=== PATIENT | female | born 1945 | race American Indian/Alaskan Native ===

== ENCOUNTER 2017-10-14 06:23 | Emergency (ER) | payer OTHER ==
[~2017-10-14] VITALS: Ht 154.9 cm; Wt 77.1 kg
[~2017-10-14 06:23] MED LIST: ALBU90OI61 INH; ASPI81CH PO; ATOR40TA PO; Alprazolam0.25 MG PO; CEPH500 PO; CLOP75 PO; Daily Multiple1 EACH PO; Duoneb 2.5-0.5 M3 ML IH; ERGO50000 PO; FERR325 PO; HYDACE10B PO; Hydrocodone-Ap1 EA20 PO; LAVAP17G PO; LIDO5TP TOP; LISI5 PO; METH10 PO; METO25 PO; Omeprazole20 M1 PO; POLYETHYLENE G255 GM PO; PROM25 PO; SUCR1 PO; TRAZ150T57 PO; Voltaren100 GM TOP; Zofran Odt4 MG SL
[2017-10-14] MEDS ORDERED: OXYC1TAB11 PO (07:55)
[2017-10-14] MEDS ORDERED: OMEPRAZOLE20 MG PO (07:58)
[2017-10-14 08:31] LABS: BASOPHILS ABSOLUTE AUTO 0.03 K/mm3 (0.00-0.23); BASOPHILS PERCENT AUTO 1 % (0-2); EOSINOPHILS ABSOLUTE AUTO 0.21 K/mm3 (0.00-0.68); EOSINOPHILS PERCENT AUTO 3 % (0-6); Hematocrit 41.1 % (33.0-51.0); Hemoglobin 12.8 g/dL (11.5-16.0); IMMATURE GRAN ABSOLUTE AUTO 0.03 K/mm3 (0.00-0.10); IMMATURE GRAN PERCENT AUTO 1 % (0-1); LYMPHOCYTES ABSOLUTE AUTO 1.49 K/mm3 (0.84-5.20); LYMPHOCYTES PERCENT AUTO 24 % (21-46); MONOCYTES ABSOLUTE AUTO 0.47 K/mm3 (0.16-1.47); MONOCYTES PERCENT AUTO 8 % (4-13); Mean Corpuscular HGB Conc 31.1 g/dL (31.5-36.5); Mean Corpuscular Volume 97 fL (80-100); Mean Platelet Volume 10.1 fL (9.1-12.4); NEUTROPHILS ABSOLUTE AUTO 4.01 K/mm3 (1.96-9.15); NEUTROPHILS PERCENT AUTO 64 % (41-73); Platelet Count 267 K/mm3 (150-400); RDW Standard Deviation 45.9 fL (35.1-46.3); Red Blood Cell Count 4.26 M/mm3 (3.80-5.20); White Blood Cell Count 6.24 K/mm3 (4.00-11.30)
[2017-10-14 08:42] LABS: Alanine Aminotransfer (ALT/SGP 23 U/L (12-78); Albumin, Blood 2.9 g/dL (3.4-5.0); Alk Phos 49 U/L (50-136); Anion Gap 6 mmol/L (6-16); Aspartate Aminotrans (AST/SGOT 20 U/L (12-37); Bilirubin, Total 0.2 mg/dL (0.1-1.0); Blood Urea Nitrogen 11 mg/dL (8-24); Bun/Creatinine Ratio 17.4 (12.0-20.0); CO2, Blood 26 mmol/L (21-32); Calcium, Blood 7.4 mg/dL (8.5-10.1); Chloride, Blood 109 mmol/L (98-108); Creatinine, Blood 0.63 mg/dL (0.40-1.00); Globulin, Blood 2.8 g/dL (2.2-4.0); Glomerular Filtration Rate >60 (60-); Glucose, Blood 120 mg/dL (70-99); Potassium, Blood 3.9 mmol/L (3.5-5.5); Sodium, Blood 141 mmol/L (136-145); Total Protein, Blood 5.7 g/dL (6.4-8.2); Troponin I 0.016 ng/mL (0.000-0.040)
[2017-10-14] MEDS ORDERED: Motion Sickness25 M2 PO (11:07)
== END 2017-10-14 12:05 | disposition home or self-care (01) ==
LOC: ER 06:23
PROVIDERS: Physician Assistant
DX: R42 Dizziness and giddiness (principal); S01.81XA Laceration without foreign body of other part of head, initial encounter; I10 Essential (primary) hypertension; E78.5 Hyperlipidemia, unspecified; K21.9 Gastro-esophageal reflux disease without esophagitis; J44.9 Chronic obstructive pulmonary disease, unspecified; Z88.0 Allergy status to penicillin; Z88.2 Allergy status to sulfonamides; Z79.899 Other long term (current) drug therapy; Z79.82 Long term (current) use of aspirin; Z87.891 Personal history of nicotine dependence; W22.8XXA Striking against or struck by other objects, initial encounter
CPT/HCPCS: 12052; 36415; 70450; 80053; 83880; 84484; 85025; 90471; 90714; 93005; 93010; 96374; 99284-25; J2405

== ENCOUNTER 2017-11-12 14:48 | Day surgery (SDC) | payer OTHER ==
[~2017-11-12 14:48] MED LIST changes: +Motion Sickness25 M2 PO; +OMEPRAZOLE20 MG PO; +OXYC1TAB11 PO
== END 2017-11-12 22:46 | disposition home or self-care (01) ==
LOC: RAD 14:48
DX: M75.121 Complete rotator cuff tear or rupture of right shoulder, not specified as traumatic (principal)
CPT/HCPCS: 20610; 23350; 73201; 77002; Q9967

== ENCOUNTER 2018-06-08 11:20 | Emergency (ER) | payer OTHER ==
[~2018-06-08] VITALS: Ht 154.9 cm; Wt 72.6 kg
[2018-06-08 11:56] LABS: BASOPHILS ABSOLUTE AUTO 0.03 K/mm3 (0.00-0.23); BASOPHILS PERCENT AUTO 0 % (0-2); EOSINOPHILS ABSOLUTE AUTO 0.11 K/mm3 (0.00-0.68); EOSINOPHILS PERCENT AUTO 1 % (0-6); Hematocrit 40.3 % (33.0-51.0); Hemoglobin 12.4 g/dL (11.5-16.0); IMMATURE GRAN ABSOLUTE AUTO 0.04 K/mm3 (0.00-0.10); IMMATURE GRAN PERCENT AUTO 0 % (0-1); LYMPHOCYTES ABSOLUTE AUTO 1.68 K/mm3 (0.84-5.20); LYMPHOCYTES PERCENT AUTO 17 % (21-46); MONOCYTES ABSOLUTE AUTO 0.68 K/mm3 (0.16-1.47); MONOCYTES PERCENT AUTO 7 % (4-13); Mean Corpuscular HGB Conc 30.8 g/dL (31.5-36.5); Mean Corpuscular Volume 94 fL (80-100); Mean Platelet Volume 9.9 fL (9.1-12.4); NEUTROPHILS ABSOLUTE AUTO 7.29 K/mm3 (1.96-9.15); NEUTROPHILS PERCENT AUTO 74 % (41-73); Platelet Count 323 K/mm3 (150-400); RDW Coefficient Variation 13.8 % (11.7-14.2); RDW Standard Deviation 47.4 fL (35.1-46.3); Red Blood Cell Count 4.28 M/mm3 (3.80-5.20); White Blood Cell Count 9.83 K/mm3 (4.00-11.30)
[2018-06-08 12:18] LABS: Alanine Aminotransfer (ALT/SGP 22 U/L (12-78); Albumin, Blood 3.3 g/dL (3.4-5.0); Albumin/Globulin Ratio 1.3 (0.8-1.8); Alk Phos 49 U/L (50-136); Anion Gap 5 mmol/L (6-16); Aspartate Aminotrans (AST/SGOT 9 U/L (12-37); Bilirubin, Total 0.3 mg/dL (0.1-1.0); Blood Urea Nitrogen 14 mg/dL (8-24); Bun/Creatinine Ratio 17.9 (12.0-20.0); CO2, Blood 28 mmol/L (21-32); Calcium, Blood 8.6 mg/dL (8.5-10.1); Chloride, Blood 108 mmol/L (98-108); Creatinine, Blood 0.78 mg/dL (0.40-1.00); Globulin, Blood 2.5 g/dL (2.2-4.0); Glomerular Filtration Rate >60 (60-); Glucose, Blood 116 mg/dL (70-99); Potassium, Blood 4.3 mmol/L (3.5-5.5); Sodium, Blood 141 mmol/L (136-145); Total Protein, Blood 5.8 g/dL (6.4-8.2)
[2018-06-08] MEDS ORDERED: Moviprep Powde1 EACH PO (14:13)
[2018-06-08] MEDS ORDERED: ONDA4ODT MM (14:16)
== END 2018-06-08 14:26 | disposition home or self-care (01) ==
LOC: ER 11:20
PROVIDERS: Physician Assistant
DX: K59.00 Constipation, unspecified (principal); Z88.0 Allergy status to penicillin; Z88.2 Allergy status to sulfonamides; Z79.899 Other long term (current) drug therapy; I10 Essential (primary) hypertension; J44.9 Chronic obstructive pulmonary disease, unspecified; Z87.891 Personal history of nicotine dependence
CPT/HCPCS: 36415; 74177; 80053; 83690; 85025; 96374-59; 99284-25; J2405; Q9967

== ENCOUNTER 2018-08-21 16:31 | Emergency (ER) | payer OTHER ==
[~2018-08-21] VITALS: Ht 154.9 cm; Wt 72.6 kg
[~2018-08-21 16:31] MED LIST changes: +Moviprep Powde1 EACH PO; +ONDA4ODT MM
[2018-08-21 17:36] LABS: BASOPHILS ABSOLUTE AUTO 0.05 K/mm3 (0.00-0.23); BASOPHILS PERCENT AUTO 1 % (0-2); EOSINOPHILS ABSOLUTE AUTO 0.27 K/mm3 (0.00-0.68); EOSINOPHILS PERCENT AUTO 3 % (0-6); Hematocrit 36.2 % (33.0-51.0); Hemoglobin 11.6 g/dL (11.5-16.0); IMMATURE GRAN ABSOLUTE AUTO 0.07 K/mm3 (0.00-0.10); IMMATURE GRAN PERCENT AUTO 1 % (0-1); LYMPHOCYTES ABSOLUTE AUTO 3.26 K/mm3 (0.84-5.20); LYMPHOCYTES PERCENT AUTO 38 % (21-46); MONOCYTES PERCENT AUTO 7 % (4-13); Mean Corpuscular HGB 29.7 pg (26.0-34.0); Mean Corpuscular Volume 93 fL (80-100); Mean Platelet Volume 10.1 fL (9.1-12.4); NEUTROPHILS ABSOLUTE AUTO 4.23 K/mm3 (1.96-9.15); NEUTROPHILS PERCENT AUTO 50 % (41-73); Platelet Count 331 K/mm3 (150-400); RDW Standard Deviation 47.7 fL (35.1-46.3); White Blood Cell Count 8.48 K/mm3 (4.00-11.30)
[2018-08-21 17:58] LABS: Alanine Aminotransfer (ALT/SGP 18 U/L (12-78); Albumin, Blood 3.4 g/dL (3.4-5.0); Albumin/Globulin Ratio 1.4 (0.8-1.8); Alk Phos 43 U/L (50-136); Anion Gap 6 mmol/L (6-16); Aspartate Aminotrans (AST/SGOT 16 U/L (12-37); Bilirubin, Total 0.3 mg/dL (0.1-1.0); Blood Urea Nitrogen 26 mg/dL (8-24); Bun/Creatinine Ratio 29.4 (12.0-20.0); CO2, Blood 30 mmol/L (21-32); Calcium, Blood 8.7 mg/dL (8.5-10.1); Chloride, Blood 95 mmol/L (98-108); Creatinine, Blood 0.88 mg/dL (0.40-1.00); Globulin, Blood 2.5 g/dL (2.2-4.0); Glomerular Filtration Rate >60 (60-); Glucose, Blood 95 mg/dL (70-99); Potassium, Blood 4.3 mmol/L (3.5-5.5); Sodium, Blood 131 mmol/L (136-145); Total Protein, Blood 5.9 g/dL (6.4-8.2)
[2018-08-21 18:02] LABS: Troponin I <0.015 ng/mL (0.000-0.040)
[2018-08-21] MEDS ORDERED: ASPI325 PO (19:36)
== END 2018-08-21 20:24 | disposition left against medical advice (07) ==
LOC: ER 16:31
PROVIDERS: Physician Assistant
DX: R53.1 Weakness (principal); R42 Dizziness and giddiness; R00.1 Bradycardia, unspecified; R07.89 Other chest pain; R06.02 Shortness of breath; Z53.21 Procedure and treatment not carried out due to patient leaving prior to being seen by health care provider
CPT/HCPCS: 36415; 70450; 71046; 80053; 83880; 84443; 84484; 85025; 93005; 93010; 99284-25

== ENCOUNTER 2018-12-10 12:25 | Emergency (ER) | payer OTHER ==
[~2018-12-10] VITALS: Ht 154.9 cm; Wt 69.8 kg
[~2018-12-10 12:25] MED LIST changes: +ASPI325 PO
[2018-12-10 13:15] LABS: BASOPHILS ABSOLUTE AUTO 0.04 K/mm3 (0.00-0.23); BASOPHILS PERCENT AUTO 1 % (0-2); Hemoglobin 10.5 g/dL (11.5-16.0); RDW Coefficient Variation 14.5 % (11.7-14.2)
[2018-12-10 13:22] LABS: EOSINOPHILS ABSOLUTE AUTO 0.44 K/mm3 (0.00-0.68); EOSINOPHILS PERCENT AUTO 6 % (0-6); Hematocrit 34.9 % (33.0-51.0); IMMATURE GRAN ABSOLUTE AUTO 0.04 K/mm3 (0.00-0.10); IMMATURE GRAN PERCENT AUTO 1 % (0-1); LYMPHOCYTES ABSOLUTE AUTO 1.67 K/mm3 (0.84-5.20); LYMPHOCYTES PERCENT AUTO 21 % (21-46); MONOCYTES ABSOLUTE AUTO 0.63 K/mm3 (0.16-1.47); MONOCYTES PERCENT AUTO 8 % (4-13); Mean Corpuscular HGB 26.3 pg (26.0-34.0); Mean Corpuscular HGB Conc 30.1 g/dL (31.5-36.5); Mean Corpuscular Volume 88 fL (80-100); NEUTROPHILS ABSOLUTE AUTO 5.13 K/mm3 (1.96-9.15); NEUTROPHILS PERCENT AUTO 65 % (41-73); RDW Standard Deviation 46.5 fL (35.1-46.3); Red Blood Cell Count 3.99 M/mm3 (3.80-5.20); White Blood Cell Count 7.95 K/mm3 (4.00-11.30)
[2018-12-10 13:26] LABS: Mean Platelet Volume 9.9 fL (9.1-12.4); Platelet Count 401 K/mm3 (150-400)
[2018-12-10 13:38] LABS: Alanine Aminotransfer (ALT/SGP 13 U/L (12-78); Albumin, Blood 3.4 g/dL (3.4-5.0); Albumin/Globulin Ratio 1.2 (0.8-1.8); Alk Phos 61 U/L (50-136); Anion Gap 5 mmol/L (6-16); Aspartate Aminotrans (AST/SGOT 18 U/L (12-37); Bilirubin, Total 0.3 mg/dL (0.1-1.0); Blood Urea Nitrogen 17 mg/dL (8-24); Bun/Creatinine Ratio 16.8 (12.0-20.0); CO2, Blood 28 mmol/L (21-32); Calcium, Blood 8.3 mg/dL (8.5-10.1); Chloride, Blood 99 mmol/L (98-108); Creatinine, Blood 1.01 mg/dL (0.40-1.00); Globulin, Blood 2.8 g/dL (2.2-4.0); Glomerular Filtration Rate 57 (60-); Glucose, Blood 104 mg/dL (70-99); Potassium, Blood 4.6 mmol/L (3.5-5.5); Sodium, Blood 132 mmol/L (136-145); Total Protein, Blood 6.2 g/dL (6.4-8.2); Troponin I <0.015 ng/mL (0.000-0.040)
[2018-12-10] MEDS ORDERED: Lasix40 MG PO (14:05)
== END 2018-12-10 14:35 | disposition home or self-care (01) ==
LOC: ER 12:25
PROVIDERS: Physician Assistant
DX: R00.2 Palpitations (principal); I49.3 Ventricular premature depolarization; R05 Cough; K21.9 Gastro-esophageal reflux disease without esophagitis; J44.9 Chronic obstructive pulmonary disease, unspecified; R60.0 Localized edema; I25.2 Old myocardial infarction; I10 Essential (primary) hypertension; Z85.41 Personal history of malignant neoplasm of cervix uteri; Z85.038 Personal history of other malignant neoplasm of large intestine; Z87.891 Personal history of nicotine dependence; Z86.73 Personal history of transient ischemic attack (TIA), and cerebral infarction without residual deficits; Z88.0 Allergy status to penicillin; Z88.2 Allergy status to sulfonamides; Z79.899 Other long term (current) drug therapy; Z79.82 Long term (current) use of aspirin
CPT/HCPCS: 36415; 71046; 80053; 83735; 83880; 84484; 85025; 93005; 93010; 99285-25

== ENCOUNTER 2023-12-26 08:11 | Day surgery (SDC) | payer OTHER ==
[~2023-12-26] VITALS: Ht 124.5 cm; Wt 72.7 kg
[~2023-12-26 08:11] MED LIST changes: +Lasix40 MG PO
[2023-12-26] MEDS ORDERED: Lactated Ringer's 1,000 ML IV ONE ×2 (08:14→09:39)
[2023-12-26] MEDS ORDERED: IPRAT-ALBUT 0.5-3 ML (08:55)
[2023-12-26] MEDS ORDERED: BUDESONIDE0.5 MG/2 M (08:55)
[2023-12-26] MEDS ORDERED: GABA400 (08:56)
[2023-12-26] MEDS ORDERED: POTA10T (08:56)
[2023-12-26] MEDS ORDERED: METF500 (08:56)
[2023-12-26] MEDS ORDERED: Crestor40 MG (08:56)
[2023-12-26] MEDS ORDERED: PANT20 (08:57)
[2023-12-26] MEDS ORDERED: propofoL 50 ML IV ONE (10:06)
[2023-12-26] MEDS ORDERED: Ipratropium/Albuterol SulF 2.5-0.5MG/3 ML Amp ONE (10:35)
--- NOTE | 2023-12-26 10:45 | NUR ---
12/26/23 1045 Dawood,Kellcie WHEEZES NOTED BILATERALLY IN UPPER LOBES, INSPIRATORY AND EXPIRATORY, SP02 AT 94%. ANESTHESIA ORDERED DUONEB FOR PT IN SDU. DUONED GIVEN.
[2023-12-26 11:45] VITALS: BP 201/104
== END 2023-12-26 11:12 | disposition home or self-care (01) ==
LOC: ORSCSDS 08:11
PROVIDERS: Internal Medicine Gastroenterology
PROC: 0DJ08ZZ Inspection of Upper Intestinal Tract, Via Natural or Artificial Opening Endoscopic (ICD-10-PCS; principal; 2023-12-26 09:30)
DX: R13.10 Dysphagia, unspecified (principal); Q39.6 Congenital diverticulum of esophagus; K21.9 Gastro-esophageal reflux disease without esophagitis; Z80.6 Family history of leukemia; J43.9 Emphysema, unspecified; J44.9 Chronic obstructive pulmonary disease, unspecified; E11.9 Type 2 diabetes mellitus without complications; Z85.038 Personal history of other malignant neoplasm of large intestine; F41.9 Anxiety disorder, unspecified; I10 Essential (primary) hypertension; I25.2 Old myocardial infarction; E66.9 Obesity, unspecified; Z68.34 Body mass index [BMI] 34.0-34.9, adult; Z79.84 Long term (current) use of oral hypoglycemic drugs; Z79.899 Other long term (current) drug therapy; Z99.81 Dependence on supplemental oxygen; Z87.891 Personal history of nicotine dependence
CPT/HCPCS: 82947; J2704; J7120

== ENCOUNTER 2024-01-31 07:47 | Day surgery (SDC) | payer OTHER ==
[~2024-01-31] VITALS: Ht 154.9 cm; Wt 69.1 kg
[~2024-01-31 07:47] MED LIST changes: +BUDESONIDE0.5 MG/2 M; +Crestor40 MG; +GABA400; +IPRAT-ALBUT 0.5-3 ML; +Lactated Ringer's 1,000 ML IV ONE; +METF500; +PANT20; +POTA10T
[2024-01-31] MEDS ORDERED: DOCUZEN 8.6-501 EACH (08:46)
[2024-01-31] MEDS ORDERED: Lactated Ringer's 1,000 ML IV ONE (09:18)
[2024-01-31] MEDS ORDERED: propofoL 50 ML IV ONE (09:28)
[2024-01-31 10:16] VITALS: BP 111/60
== END 2024-01-31 10:22 | disposition home or self-care (01) ==
LOC: ORSCSDS 07:47
DX: R13.10 Dysphagia, unspecified (principal); Q39.6 Congenital diverticulum of esophagus; K44.9 Diaphragmatic hernia without obstruction or gangrene; K21.9 Gastro-esophageal reflux disease without esophagitis; I50.9 Heart failure, unspecified; J44.9 Chronic obstructive pulmonary disease, unspecified; E78.5 Hyperlipidemia, unspecified; I25.10 Atherosclerotic heart disease of native coronary artery without angina pectoris; E66.9 Obesity, unspecified; Z68.44 Body mass index [BMI] 60.0-69.9, adult; E11.22 Type 2 diabetes mellitus with diabetic chronic kidney disease; I12.9 Hypertensive chronic kidney disease with stage 1 through stage 4 chronic kidney disease, or unspecified chronic kidney disease; N18.9 Chronic kidney disease, unspecified; I25.2 Old myocardial infarction; Z86.73 Personal history of transient ischemic attack (TIA), and cerebral infarction without residual deficits; M79.7 Fibromyalgia; Z85.038 Personal history of other malignant neoplasm of large intestine; Z79.84 Long term (current) use of oral hypoglycemic drugs; Z79.899 Other long term (current) drug therapy; Z87.891 Personal history of nicotine dependence
CPT/HCPCS: 82947; 88305; 88342; C1769; J2704; J7120

== ENCOUNTER 2024-02-22 10:24 | Day surgery (SDC) | payer OTHER ==
[~2024-02-22] VITALS: Ht 154.9 cm; Wt 71.4 kg
[~2024-02-22 10:24] MED LIST changes: +DOCUZEN 8.6-501 EACH
[2024-02-22] MEDS ORDERED: Lactated Ringer's 1,000 ML IV ONE ×2 (12:00→12:20)
--- NOTE | 2024-02-22 13:03 | NUR ---
02/22/24 1303 Sintia Tuttle S PT. UP TO BR VIA WC WITH 'S ASSIST IN THE BR PER PT. REQUEST. PT. LAYING ON RIGHT SIDE. PT. VERBALIZES HAVING SOME BACK PAIN, SCIATICA, PT. GIVEN WARM BLANKETS & WARM BACK ON BACK & PILLOW PLACED BEHIND BACK. PT. THOUGHT HER PROCEDURE WAS FOR 1030, INSTRUCTED PT. THAT HER PROCEDURE TIME WAS FOR 1200 BUT WAS RUNNING BEHIND. PT. WAS CALLED YESTERDAY & TCR SPOKE WITH PT. ABOUT TIME TO BE HERE. IS AT SIDE. PT.'S CALL LIGHT WITH REACH AT BEDSIDE.
[2024-02-22] MEDS ORDERED: propofoL 50 ML IV ONE (13:21)
[2024-02-22 14:42] VITALS: BP 158/76
== END 2024-02-22 14:35 | disposition home or self-care (01) ==
LOC: ORSCSDS 10:24
PROVIDERS: Internal Medicine Gastroenterology
PROC: 0DBK8ZX Excision of Ascending Colon, Via Natural or Artificial Opening Endoscopic, Diagnostic (ICD-10-PCS; principal; 2024-02-22 12:00)
DX: Z12.11 Encounter for screening for malignant neoplasm of colon (principal); D12.2 Benign neoplasm of ascending colon; K57.30 Diverticulosis of large intestine without perforation or abscess without bleeding; K64.4 Residual hemorrhoidal skin tags; Z85.038 Personal history of other malignant neoplasm of large intestine; M79.7 Fibromyalgia; K21.9 Gastro-esophageal reflux disease without esophagitis; I69.351 Hemiplegia and hemiparesis following cerebral infarction affecting right dominant side; J44.9 Chronic obstructive pulmonary disease, unspecified; Z79.84 Long term (current) use of oral hypoglycemic drugs; Z79.899 Other long term (current) drug therapy; Z87.891 Personal history of nicotine dependence
CPT/HCPCS: 82947; 88305; J2704; J7120

== ENCOUNTER 2024-05-29 14:25 | Inpatient (IN) | payer OTHER ==
[~2024-05-29] VITALS: Ht 154.9 cm; Wt 75.5 kg
[~2024-05-29 14:25] MED LIST changes: -Lactated Ringer's 1,000 ML IV ONE
[2024-05-29] MEDS ORDERED: NS 1,000 ML IV ONE ×2 (15:00→18:20)
[2024-05-29 15:17] LABS: BASOPHILS ABSOLUTE AUTO 0.04 K/mm3 (0.00-0.23); BASOPHILS PERCENT AUTO 0 % (0-2); EOSINOPHILS ABSOLUTE AUTO 0.09 K/mm3 (0.00-0.68); EOSINOPHILS PERCENT AUTO 1 % (0-6); Hematocrit 41.3 % (33.0-51.0); Hemoglobin 13.2 g/dL (11.5-16.0); IMMATURE GRAN ABSOLUTE AUTO 0.04 K/mm3 (0.00-0.10); IMMATURE GRAN PERCENT AUTO 0 % (0-1); LYMPHOCYTES ABSOLUTE AUTO 2.75 K/mm3 (0.84-5.20); LYMPHOCYTES PERCENT AUTO 24 % (21-46); MONOCYTES ABSOLUTE AUTO 0.78 K/mm3 (0.16-1.47); MONOCYTES PERCENT AUTO 7 % (4-13); Mean Corpuscular HGB 32.4 pg (26.0-34.0); Mean Corpuscular Volume 101 fL (80-100); Mean Platelet Volume 9.7 fL (9.1-12.4); NEUTROPHILS ABSOLUTE AUTO 7.56 K/mm3 (1.96-9.15); NEUTROPHILS PERCENT AUTO 67 % (41-73); Platelet Count 238 K/mm3 (150-400); RDW Coefficient Variation 11.9 % (11.7-14.2); RDW Standard Deviation 44.4 fL (35.1-46.3); Red Blood Cell Count 4.08 M/mm3 (3.80-5.20); White Blood Cell Count 11.26 K/mm3 (4.00-11.30)
[2024-05-29 15:53] LABS: Albumin, Blood 3.3 g/dL (3.4-5.0); Albumin/Globulin Ratio 1.4 (0.8-1.8); Bilirubin, Total 0.5 mg/dL (0.1-1.0); Bun/Creatinine Ratio 15.5 (12.0-20.0); Calcium, Blood 8.1 mg/dL (8.5-10.1); Creatinine, Blood 2.38 mg/dL (0.40-1.00); Globulin, Blood 2.4 g/dL (2.2-4.0); Potassium, Blood 4.5 mmol/L (3.5-5.5); Total Protein, Blood 5.7 g/dL (6.4-8.2)
[2024-05-29 16:42] LABS: Influenza A, PCR NEGATIVE (NEGATIVE); Influenza B, PCR NEGATIVE (NEGATIVE); Resp Syncytial Virus, PCR NEGATIVE (NEGATIVE); SARS-Cov-2 (COVID-19) PCR, MMC NEGATIVE (NEGATIVE)
[2024-05-29 16:48] LABS: Source, Urine Clean Catch
[2024-05-29 16:51] LABS: Appearance, Urine Clear (Clear); Blood, Urine Neg (Neg); Color, Urine Yellow (P-Yellow); Glucose Qualitative, Urine Neg (Neg); Ketones, Urine Neg (Neg); Leukocyte Esterase, Urine 1+ (Neg); Nitrite, Urine Neg (Neg); Protein, Urine 1+ (Neg); Urobilinogen, Urine NORM (Normal)
[2024-05-29 16:58] LABS: Bilirubin, Urine 1+ (Neg)
[2024-05-29 16:59] LABS: Bacteria Mod /hpf; Red Blood Cells, Urine 0-2 /hpf (0-2); Squamous Epithelial Cells Few /hpf (Few)
[2024-05-29 17:08] LABS: Albumin, Blood 3.3 g/dL (3.4-5.0); Albumin/Globulin Ratio 1.6 (0.8-1.8); Bilirubin, Total 0.2 mg/dL (0.1-1.0); Bun/Creatinine Ratio 16.5 (12.0-20.0); Calcium, Blood 8.2 mg/dL (8.5-10.1); Creatinine, Blood 2.31 mg/dL (0.40-1.00); Magnesium, Blood 2.1 mg/dL (1.6-2.4); Phosphorus, Blood 5.3 mg/dL (2.5-4.9); Potassium, Blood 4.4 mmol/L (3.5-5.5); Total Protein, Blood 5.3 g/dL (6.4-8.2)
[2024-05-29] MEDS ORDERED: NS 1,000 ML IV SCH ×4 (17:50→21:00)
[2024-05-29] MEDS ORDERED: CefTRIAXone Sodium 1,000 MG in NS 100 ML IV ONE (18:30)
[2024-05-29] MEDS ORDERED: Azithromycin 500 MG in NS 250 ML IV ONE (18:30)
[2024-05-29] MEDS ORDERED: METFORMIN HCL500 M2 PO (19:22)
[2024-05-29] MEDS ORDERED: LISI20 PO (19:22)
[2024-05-29] MEDS ORDERED: METOPROLOL SUCC25 MG PO (19:22)
[2024-05-29] MEDS ORDERED: OMEP20ER PO (19:23)
[2024-05-29] MEDS ORDERED: TRAZ100 PO (19:23)
[2024-05-29] MEDS ORDERED: OXYCODONE-ACET1 EAC2 PO (19:23)
[2024-05-29] MEDS ORDERED: NYSTOP15 GM TOP (19:24)
[2024-05-29] MEDS ORDERED: GABAPENTIN600 MG PO (19:24)
[2024-05-29] MEDS ORDERED: POTA10T PO (19:24)
[2024-05-29] MEDS ORDERED: FUROSEMIDE20 MG PO (19:24)
[2024-05-29] MEDS ORDERED: ROSUVASTATIN CA20 MG PO (19:24)
[2024-05-29] MEDS ORDERED: Ipratropium/Albuterol SulF 2.5-0.5MG/3 ML Amp INH PRN (20:45)
[2024-05-29] MEDS ORDERED: Heparin Sodium,Porcine 5,000 UNIT/0.5 ML SDV SC SCH (21:00)
[2024-05-29 22:25] VITALS: BP 118/44
[2024-05-29] MEDS ORDERED: Sennosides 8.6 MG Tab PO PRN (23:35)
[2024-05-29] MEDS ORDERED: Polyethylene Glycol 3350 17 gm PO PRN (23:35)
[2024-05-30] VITALS (14 sets, daily range): BP systolic 81–220; BP diastolic 44–93
[2024-05-30 04:15] LABS: BASOPHILS ABSOLUTE AUTO 0.03 K/mm3 (0.00-0.23); BASOPHILS PERCENT AUTO 0 % (0-2); EOSINOPHILS ABSOLUTE AUTO 0.19 K/mm3 (0.00-0.68); EOSINOPHILS PERCENT AUTO 2 % (0-6); Hematocrit 38.5 % (33.0-51.0); Hemoglobin 11.9 g/dL (11.5-16.0); IMMATURE GRAN ABSOLUTE AUTO 0.03 K/mm3 (0.00-0.10); IMMATURE GRAN PERCENT AUTO 0 % (0-1); LYMPHOCYTES ABSOLUTE AUTO 3.51 K/mm3 (0.84-5.20); LYMPHOCYTES PERCENT AUTO 39 % (21-46); MONOCYTES ABSOLUTE AUTO 0.58 K/mm3 (0.16-1.47); MONOCYTES PERCENT AUTO 7 % (4-13); Mean Corpuscular HGB 31.6 pg (26.0-34.0); Mean Corpuscular HGB Conc 30.9 g/dL (31.5-36.5); Mean Corpuscular Volume 102 fL (80-100); Mean Platelet Volume 10.3 fL (9.1-12.4); NEUTROPHILS ABSOLUTE AUTO 4.56 K/mm3 (1.96-9.15); NEUTROPHILS PERCENT AUTO 51 % (41-73); Platelet Count 205 K/mm3 (150-400); RDW Coefficient Variation 11.9 % (11.7-14.2); RDW Standard Deviation 44.9 fL (35.1-46.3); Red Blood Cell Count 3.76 M/mm3 (3.80-5.20)
[2024-05-30 04:44] LABS: Albumin, Blood 2.8 g/dL (3.4-5.0); Albumin/Globulin Ratio 1.4 (0.8-1.8); Bilirubin, Total 0.2 mg/dL (0.1-1.0); Calcium, Blood 7.9 mg/dL (8.5-10.1); Creatinine, Blood 1.25 mg/dL (0.40-1.00); Magnesium, Blood 2.1 mg/dL (1.6-2.4); Potassium, Blood 4.1 mmol/L (3.5-5.5); Total Protein, Blood 4.8 g/dL (6.4-8.2)
--- NOTE | 2024-05-30 05:52 | NUR ---
SHIFT SUMMARY PATIENT A&OX4. LEFT SIDED WEAKNESS NOTED, PATIENT REPORTS HAVING CVA IN THE PAST. PATIENT ABLE TO TRANSFER WITH MINIMAL ASSISTANCE. ARRIVED ON 2L O2 NC, HAS BEEN TITRATED DOWN TO 1L O2 NC. PATIENT IS HYPOTENSIVE, MAP IS GREATER THAN 65. UPON ARRIVAL PATIENT REPORTED DIFFICULTY URINATING, HAS BEEN ABLE TO VOID OVERNIGHT. WILL CONTINUE TO MONITOR. CALL BUTTON IN REACH.
[2024-05-30] MEDS ORDERED: CefTRIAXone Sodium 1,000 MG in NS 100 ML IV SCH (09:00)
[2024-05-30] MEDS ORDERED: OxyCODONE HCL 5 MG TAB PO PRN (11:45)
[2024-05-30] MEDS ORDERED: Acetaminophen 325 MG TABLET PO PRN (11:45)
[2024-05-30] MEDS ORDERED: Atorvastatin 40 MG Tab PO SCH (13:00)
[2024-05-30] MEDS ORDERED: Aspirin 81 MG Chew PO ONE (13:00)
[2024-05-30] MEDS ORDERED: HydrALAZINE HCl 20 MG / ML 1ML Vial IV PRN (15:55)
[2024-05-30] MEDS ORDERED: Metoprolol Succinate 25 MG TABCR PO SCH (16:00)
[2024-05-30] MEDS ORDERED: Lisinopril 20 MG Tab PO SCH (16:00)
--- NOTE | 2024-05-30 16:43 | NUR ---
SHIFT SUMMARY: PT ALERT AND ORIENTED X4, ABLE TO FOLLOW COMMANDS AND MAKE NEEDS KNOWN. STRENGTH WEAK, EQUAL BILATERALLY. PEERLA. PT ADMITTED WITH CONCERNS OF STROKE LIKE SYMPTOMS, NO DEFECITS NOTED THIS SHIFT. BP SOFT THIS AM, MAP >65. MADE AWARE. BP IMPROVED THROUGHOUT THE DAY, SYS >160. HOME BLOOD PRESSURE MEDICATIONS REORDERED. HR SR 80'S. DENIES CP/PRESSURE. PULSES STRONG AND EQUAL THROUGHOUT. +1 EDEMA NOTED IN BLE. AFEBRILE. SPO2 >96% ON RA. LUNG SOUNDS CLEAR THROUGHOUT. ABD SOFT NON TENDER, BOWEL SOUNDS +. PT WITH PAIN PUMP IN [facility]. MANAGED BY PCP IN [place]. PT ALSO WITH SPINE STIMULATOR, STATES BATTERIES ARE CURRENTLY NON WORKING, FOLLOWING OUTPATIENT. PT SBA TO AND FROM [facility], CONTINENT OF URINE AND BOWEL. NO BM THIS SHIFT. NS GTT 100ML/HR IN LAC. FAMILY AT BESIDE THIS AFTERNOON, UPDATED ON PT PLAN OF CARE. PT CURRENTLY IN BED, WATCHING TELEVISION. BED IN LOW, CALL LIGHT IN REACH, WILL REPORT TO ONCOMING RN.
[2024-05-30] MEDS ORDERED: OxyCODONE 10/Acetamin 325 TABLET PO SCH (18:00)
[2024-05-30] MEDS ORDERED: Gabapentin 300 MG Cap PO SCH (21:00)
[2024-05-30] MEDS ORDERED: TraZODone HCl 100 MG Tab PO SCH (21:00)
[2024-05-30] MEDS ORDERED: Miconazole Nitrate 2% 85 GM PWD TOP SCH (21:00)
--- NOTE | 2024-05-30 21:18 | NUR ---
PHYSICIAN COMMUNICATION CONTACTED DR CHAVEZ TO NOTIFY HIM THAT THE PATIENT WAS HYPERTENSIVE AT 220/93, HYDRALAZINE GIVEN PER EMAR AND BP NOW 206 SYSTOLIC WITH HEART RATE IN 80'S. REPORTED THAT THE PATIENT IS SYMPTOMATIC WITH 10/10 HEADACHE, CHEST PAIN, AND SHORTNESS OF BREATH. DR CHAVEZ ORDERED LABETALOL 10 MG IV NOW X1. WILL CONTINUE TO MONITOR.
[2024-05-30] MEDS ORDERED: Labetalol HCL 5 MG/ML 4ML Injection (Single Dose) IV ONE (21:20)
[2024-05-31] VITALS (30 sets, daily range): BP systolic 118–214; BP diastolic 50–170
[2024-05-31 04:15] LABS: BASOPHILS ABSOLUTE AUTO 0.03 K/mm3 (0.00-0.23); BASOPHILS PERCENT AUTO 0 % (0-2); EOSINOPHILS ABSOLUTE AUTO 0.27 K/mm3 (0.00-0.68); EOSINOPHILS PERCENT AUTO 4 % (0-6); Hematocrit 42.5 % (33.0-51.0); Hemoglobin 13.5 g/dL (11.5-16.0); IMMATURE GRAN ABSOLUTE AUTO 0.02 K/mm3 (0.00-0.10); IMMATURE GRAN PERCENT AUTO 0 % (0-1); LYMPHOCYTES ABSOLUTE AUTO 2.68 K/mm3 (0.84-5.20); LYMPHOCYTES PERCENT AUTO 40 % (21-46); MONOCYTES ABSOLUTE AUTO 0.54 K/mm3 (0.16-1.47); MONOCYTES PERCENT AUTO 8 % (4-13); Mean Corpuscular HGB 31.3 pg (26.0-34.0); Mean Corpuscular HGB Conc 31.8 g/dL (31.5-36.5); Mean Corpuscular Volume 98 fL (80-100); Mean Platelet Volume 10.2 fL (9.1-12.4); NEUTROPHILS ABSOLUTE AUTO 3.13 K/mm3 (1.96-9.15); NEUTROPHILS PERCENT AUTO 47 % (41-73); Platelet Count 238 K/mm3 (150-400); RDW Coefficient Variation 11.6 % (11.7-14.2); RDW Standard Deviation 42.5 fL (35.1-46.3); Red Blood Cell Count 4.32 M/mm3 (3.80-5.20); White Blood Cell Count 6.67 K/mm3 (4.00-11.30)
[2024-05-31 04:42] LABS: Bun/Creatinine Ratio 15.3 (12.0-20.0); Calcium, Blood 8.7 mg/dL (8.5-10.1); Creatinine, Blood 0.65 mg/dL (0.40-1.00); Potassium, Blood 4.5 mmol/L (3.5-5.5)
--- NOTE | 2024-05-31 05:29 | NUR ---
PHYSICIAN COMMUNICATION NOTIFIED DR MARCUM THAT THE PATIENT'S BLOOD PRESSURE HAS TRENDED BACK UP AND WAS MEDICATED PER EMAR FOR BP IN THE 190'S AROUND 0415 AM AND UPON RECHECK AN HOUR LATER, THE BLOOD PRESSURE INCREASED TO 206/80. ALSO INFORMED HIM THAT THE PATIENT IS ON FLUIDS FOR ACUTE KIDNEY INJURY BUT LABS ARE WITHIN NORMAL LIMITS THIS MORNING. DR MARCUM SAID TO DISCONTINUE THE FLUIDS AND HE WILL ORDER SOMETHING TO LOWER THE BLOOD PRESSURE.
[2024-05-31] MEDS ORDERED: Omeprazole 20 MG CapCR PO SCH (06:00)
[2024-05-31] MEDS ORDERED: Labetalol HCL 5 MG/ML 4ML Injection (Single Dose) IV ONE (06:00)
--- NOTE | 2024-05-31 06:02 | NUR ---
SHIFT SUMMARY PATIENT A&O X4. PATIENT HAS SYMPTOMATIC HYPERTENSION WITH REPORTS OF HEADACHE, CHEST PAIN, AND SHORTNESS OF BREATH, MEDICATED PER EMAR, UNRESOLVED AT THIS TIME, MD NOTIFIED. URINARY FREQUENCY NOTED. WILL CONTINUE TO MONITOR.
[2024-05-31] MEDS ORDERED: HydrALAZINE HCl 20 MG / ML 1ML Vial IV PRN (08:25)
[2024-05-31] MEDS ORDERED: AmLODIPine Besylate 5 MG Tab PO SCH (09:00)
[2024-05-31] MEDS ORDERED: Enoxaparin 40 MG/0.4 ML SYR SC SCH (09:00)
[2024-05-31] MEDS ORDERED: Ondansetron HCl 2 MG / ML 2ML Vial IV PRN (10:25)
[2024-05-31] MEDS ORDERED: Furosemide 10 MG / ML 2ML Vial IV ONE ×2 (11:00→13:00)
[2024-05-31] MEDS ORDERED: Sennosides 8.6 MG Tab PO PRN (11:08)
--- NOTE | 2024-05-31 18:08 | NUR ---
SHIFT SUMMARY PT A&OX4. SP02>90% ON RA-1L NC. TELEMETRY SHOWS NSR, HR 90'S-100'S. HTN NOTED. HYDRALAZINE GIVEN PER EMAR THIS AM. NOTIFIED. BNP DRAWN, SEE RESULTS. 20 MG LASIX GIVEN X2 PER EMAR. PT BP DECREASED, SEE VITALS. PT HTN SYMPTOMS (HEADACHE, NAUSEA) RESOLVED ONCE BP DECREASED. C/O OF PAIN, MEDICATED PER EMAR. PURWIK TO SUCTION. NO BM THIS SHIFT, BOWEL CARE GIVEN PER EMAR. PT CURRENTLY RESTING IN ROOM TALKING TO . APPEARS IN [facility]. CALL LIGHT IN REACH.
[2024-05-31] MEDS ORDERED: Polyethylene Glycol 3350 17 gm PO SCH (21:00)
[2024-05-31] MEDS ORDERED: Sennosides 8.6 MG Tab PO SCH (21:00)
[2024-06-01 03:59] VITALS: BP 124/52
--- NOTE | 2024-06-01 05:16 | NUR ---
SHIFT SUMMARY NO ACUTE CHANGES OVERNIGHT. VSS ON RA-1LNC NOC TO MAINTAIN >88%. BPs STABALIZED THROUGHOUT THE NIGHT. PT IN MOD-SEVERE PAIN IN BACK AND SCIATICA PAIN, SCHEDULED PERCOCET GIVEN PER EMAR WITH PRN OXYCODONE GIVEN WITH MODERATE EFFECT. PT WAS GIVEN HEAT PAD AND STATED THAT HELPED. PT USING PUREWICK THROUGHOUT NIGHT. NO FURTHER QUESTIONS OR CONCERNS AT THIS TIME. CALL BABB WITHIN REACH WITH BED ALARM ON. WILL CONTINUE WITH PLAN OF CARE.
[2024-06-01 08:00] VITALS: BP 126/49
[2024-06-01] MEDS ORDERED: Furosemide 20 MG Tab PO SCH (09:00)
[2024-06-01 12:55] VITALS: BP 124/59
--- NOTE | 2024-06-01 13:55 | NUR ---
DISCHARGE SUMMARY PT A&OX4. VSS. PT DENIES SOB/CP. C/O OF BACK PAIN, MEDICATED PER EMAR. DISCHARGE PAPERWORK REVIEWED W/ PT. MEDICATIONS REVIEWED WITH PT, NO NEW MEDS. IV REMOVED. TELEMETRY REMOVED. PT AMBULATED AROUND UNIT W/ RT FOR HOME 02 STUDY, SEE RT ASSESSMENT. PT HELPED DRESS IN HOME CLOTHING. WAITING IN ROOM W/ PERSONAL BELONGINGS FOR NEIGHBOR TO MEDICAL DOCTOR MD. CALL LIGHT IN REACH.
== END 2024-06-01 15:10 | disposition home or self-care (01) | DRG 682 ==
LOC: ER 14:25 → PCU 20:43 → ERHOLD 20:43 → PCU 22:21
PROVIDERS: Emergency Medicine; Family Medicine; Physician Assistant; Student in an Organized Health Care Education/Training Program; ADMIT Internal Medicine
PROC: 3E033XZ Introduction of Vasopressor into Peripheral Vein, Percutaneous Approach (ICD-10-PCS; principal; 2024-05-29)
DX: N17.9 Acute kidney failure, unspecified (principal); R57.1 Hypovolemic shock; N39.0 Urinary tract infection, site not specified; E87.1 Hypo-osmolality and hyponatremia; J96.11 Chronic respiratory failure with hypoxia; I69.351 Hemiplegia and hemiparesis following cerebral infarction affecting right dominant side; I10 Essential (primary) hypertension; G89.29 Other chronic pain; M54.9 Dorsalgia, unspecified; J44.9 Chronic obstructive pulmonary disease, unspecified; I25.10 Atherosclerotic heart disease of native coronary artery without angina pectoris; K59.00 Constipation, unspecified; M19.90 Unspecified osteoarthritis, unspecified site; M79.7 Fibromyalgia; E88.09 Other disorders of plasma-protein metabolism, not elsewhere classified; E87.70 Fluid overload, unspecified; Z99.81 Dependence on supplemental oxygen; Z88.0 Allergy status to penicillin; Z88.2 Allergy status to sulfonamides; Z96.82 Presence of neurostimulator; Z79.84 Long term (current) use of oral hypoglycemic drugs; I25.2 Old myocardial infarction; Z87.891 Personal history of nicotine dependence; Z98.1 Arthrodesis status; Z85.41 Personal history of malignant neoplasm of cervix uteri; Z85.038 Personal history of other malignant neoplasm of large intestine
CPT/HCPCS: 0241U; 36415; 51798; 70450; 70496; 70498; 71045; 74176; 80048; 80053; 81001; 82947; 83605; 83735; 83880; 84100; 84145; 84484; 85025; 87040; 87086; 92610; 93005; 93010; 93306; 94640; 94664; 94761; 94762; 96361; 96365; 96367; 99285-25; A9270; J0360; J0456; J0696; J1644; J1650; J1940; J2405; J7030; J7050; Q9967

== ENCOUNTER → 2024-06-16 | Outpatient (CLI) | payer OTHER ==
[~2024-06-16] MED LIST changes: +FUROSEMIDE20 MG PO; +GABAPENTIN600 MG PO; +LISI20 PO; +METFORMIN HCL500 M2 PO; +METOPROLOL SUCC25 MG PO; +NYSTOP15 GM TOP; +OMEP20ER PO; +OXYCODONE-ACET1 EAC2 PO; +POTA10T PO; +ROSUVASTATIN CA20 MG PO; +TRAZ100 PO
[2024-06-16 14:20] LABS: BASOPHILS ABSOLUTE AUTO 0.04 K/mm3 (0.00-0.23); BASOPHILS PERCENT AUTO 1 % (0-2); EOSINOPHILS ABSOLUTE AUTO 0.35 K/mm3 (0.00-0.68); EOSINOPHILS PERCENT AUTO 6 % (0-6); Hemoglobin 13.2 g/dL (11.5-16.0); IMMATURE GRAN ABSOLUTE AUTO 0.04 K/mm3 (0.00-0.10); IMMATURE GRAN PERCENT AUTO 1 % (0-1); LYMPHOCYTES ABSOLUTE AUTO 1.93 K/mm3 (0.84-5.20); LYMPHOCYTES PERCENT AUTO 31 % (21-46); MONOCYTES ABSOLUTE AUTO 0.43 K/mm3 (0.16-1.47); MONOCYTES PERCENT AUTO 7 % (4-13); Mean Corpuscular HGB 31.6 pg (26.0-34.0); Mean Corpuscular HGB Conc 31.4 g/dL (31.5-36.5); Mean Corpuscular Volume 101 fL (80-100); Mean Platelet Volume 10.5 fL (9.1-12.4); NEUTROPHILS ABSOLUTE AUTO 3.49 K/mm3 (1.96-9.15); NEUTROPHILS PERCENT AUTO 56 % (41-73); Platelet Count 268 K/mm3 (150-400); RDW Coefficient Variation 11.7 % (11.7-14.2); RDW Standard Deviation 43.8 fL (35.1-46.3); Red Blood Cell Count 4.18 M/mm3 (3.80-5.20); White Blood Cell Count 6.28 K/mm3 (4.00-11.30)
[2024-06-16 18:24] LABS: Percent Saturation 32.4 % (15.0-50.0)
[2024-06-16 18:25] LABS: Albumin, Blood 3.6 g/dL (3.4-5.0); Albumin/Globulin Ratio 1.4 (0.8-1.8); Bilirubin, Total 0.3 mg/dL (0.1-1.0); Calcium, Blood 8.7 mg/dL (8.5-10.1); Creatinine, Blood 0.65 mg/dL (0.40-1.00); Globulin, Blood 2.5 g/dL (2.2-4.0); Phosphorus, Blood 3.6 mg/dL (2.5-4.9); Potassium, Blood 4.2 mmol/L (3.5-5.5); Total Protein, Blood 6.1 g/dL (6.4-8.2)
== END | disposition home or self-care (01) ==
LOC: LAB SHORT 12:17 → LAB 12:17
PROVIDERS: Nurse Practitioner Family
DX: I11.0 Hypertensive heart disease with heart failure (principal); I50.9 Heart failure, unspecified; I48.21 Permanent atrial fibrillation; I63.9 Cerebral infarction, unspecified; E55.9 Vitamin D deficiency, unspecified; J44.9 Chronic obstructive pulmonary disease, unspecified; G89.29 Other chronic pain; R79.0 Abnormal level of blood mineral; R73.03 Prediabetes
CPT/HCPCS: 80053; 83540; 83550; 84100; 85025